=== PATIENT | female | born 1945 | race Caucasian/White ===

== ENCOUNTER 2018-11-02 05:12 | Inpatient (IN) ==
[2018-10-26 14:18] LABS: URINE SOURCE CLEAN CATCH
--- NOTE | 2018-10-26 14:20 | EKG Report ---
Test Performed on : 10/26/2018 1:34:05 PM Test Reason : PAT Blood Pressure : / mmHG Vent. Rate : 083 BPM Atrial Rate : 083 BPM P-R Int : 184 ms QRS Dur : 092 ms QT Int : 392 ms P-R-T Axes : 041 009 035 degrees QTc Int : 460 ms Normal sinus rhythm. Possible Left atrial enlargement Left ventricular hypertrophy Nonspecific ST abnormality Abnormal ECG When compared with ECG of 14-JUL-2018 16:13, aberrant conduction. is no longer present Confirmed by Elissa ARREDONDO, Everardo Valladares ([id number]) on 10/27/2018 10:14:47 PM
[2018-10-26 14:21] LABS: BASO# 0.04 X1000 (0.0-0.2); BASO% 0.8 % (0.0-0.8); EOS# 0.04 X1000 (0.0-0.7); EOS% 0.8 % (0.0-10.0); HEMATOCRIT 36.3 % (37.0-47.0); HEMOGLOBIN 11.8 g/dL (12.0-16.0); IMM GRAN# 0.05 X1000 (0.0-0.04); LYMPH# 1.66 X1000 (1.2-3.4); LYMPH% 32.4 % (20.5-51.1); MCH 29.7 PG (27-31); MCHC 32.5 g/dL (33-37); MCV 91.4 FL (81-99); MONO# 0.38 X1000 (0.11-0.59); MONO% 7.4 % (1.7-9.3); MPV 11.3 FL (7.4-10.4); NEUT# 2.96 X1000 (1.4-6.5); NEUT% 57.6 % (42.2-75.2); PLT 191 X1000 (130-400); RBC 3.97 XMIL (4.2-5.4); RDW 15.1 % (11.5-14.5); WBC 5.13 X1000 (4.8-10.8)
[2018-10-26 14:24] LABS: BILIRUBIN URINE NEGATIVE (NEGATIVE); BLOOD URINE NEGATIVE (NEGATIVE); COLOR YELLOW; GLUCOSE URINE NEGATIVE (NEGATIVE); KETONE URINE TRACE mg/dL (NEGATIVE); LEUKOCYTES URINE SMALL (NEGATIVE); NITRITE URINE NEGATIVE (NEGATIVE); PH URINE 5.5; PROTEIN URINE 200 mg/dL (NEGATIVE); SP GRAVITY URINE 1.032; TURBIDITY URINE CLEAR (CLEAR); UROBILINOGEN URINE 2 mg/dL (NORMAL)
[2018-10-26 14:27] LABS: UR EPITHELIAL CELLS <10 /HPF (<10); URINE BACTERIA NEGATIVE /HPF; URINE RBC <10 /HPF (<10); URINE WBC <10 /HPF (<10)
[2018-10-26 14:30] LABS: INR 1.01; PROTIME 13.4 Seconds (11.0-16.0); URINE CASTS NONE SEEN
[2018-10-26 14:54] LABS: POTASSIUM 3.8 mmol/L (3.5-5.1)
[2018-10-26 15:12] LABS: HEMOGLOBIN A1C 6.4 % (4.8-6.0)
[2018-11-02] MEDS ORDERED: COLACE ONE (05:53)
[2018-11-02] MEDS ORDERED: REGLAN ONE (05:53)
[2018-11-02] MEDS ORDERED: LYRICA ONE (05:53)
[2018-11-02] MEDS ORDERED: CELEBREX ONE (05:53)
[2018-11-02] MEDS ORDERED: PEPCID ONE (05:53)
[2018-11-02] MEDS ORDERED: LR 1,000 ML ONE (05:54)
[2018-11-02] MEDS ORDERED: KEFZOL 1 GM/D5W 2 GM/100 ML IVPB ONE (05:54)
[2018-11-02] MEDS ORDERED: FENTANYL ONE (06:46)
[2018-11-02] MEDS ORDERED: DIPRIVAN 1% ONE ×4 (06:47→08:49)
[2018-11-02] MEDS ORDERED: XYLOCAINE-MPF 2% ONE (06:49)
[2018-11-02] MEDS ORDERED: ROBINUL ONE (06:49)
[2018-11-02] MEDS ORDERED: QUELICIN (DOSE) ONE (06:49)
[2018-11-02] MEDS ORDERED: TORADOL ONE (07:04)
[2018-11-02] MEDS ORDERED: SODIUM CHLORIDE 0.9% ONE (07:04)
[2018-11-02] MEDS ORDERED: CYKLOKAPRON 1,000 MG/NS 1,000 MG/100 ML IVPB ONE ×2 (07:04→07:05)
[2018-11-02] MEDS ORDERED: VANCOMYCIN ONE (07:04)
[2018-11-02] MEDS ORDERED: DURAMORPH ONE (07:04)
[2018-11-02] MEDS ORDERED: MARCAINE 0.25% PF ONE (07:04)
[2018-11-02] MEDS ORDERED: EXPAREL 1.3% ONE (07:05)
[2018-11-02] MEDS ORDERED: DECADRON ONE (08:01)
[2018-11-02] MEDS ORDERED: ZOFRAN ONE (08:01)
[2018-11-02] MEDS ORDERED: OFIRMEV 1000 MG/ISOTONIC SOLN 1,000 MG/100 ML BOTTLE ONE (08:01)
[2018-11-02 08:14] LABS: URINE SOURCE CATH
[2018-11-02 08:20] LABS: BILIRUBIN URINE NEGATIVE (NEGATIVE); BLOOD URINE NEGATIVE (NEGATIVE); COLOR YELLOW; GLUCOSE URINE NEGATIVE (NEGATIVE); KETONE URINE NEGATIVE (NEGATIVE); LEUKOCYTES URINE NEGATIVE (NEGATIVE); NITRITE URINE NEGATIVE (NEGATIVE); PH URINE 6.5; PROTEIN URINE 200 mg/dL (NEGATIVE); SP GRAVITY URINE 1.016; TURBIDITY URINE CLEAR (CLEAR); UR EPITHELIAL CELLS <10 /HPF (<10); URINE BACTERIA NEGATIVE /HPF; URINE RBC <10 /HPF (<10); URINE WBC <10 /HPF (<10); UROBILINOGEN URINE NORMAL (NORMAL)
--- NOTE | 2018-11-02 09:14 | OPERATIVE NOTE ---
PROCEDURE DATE: 11/02/2018 PREOPERATIVE DIAGNOSIS: Degenerative joint disease, right knee. POSTOPERATIVE DIAGNOSIS: Degenerative joint disease, right knee. PROCEDURE PERFORMED: Right total knee replacement. SURGEON: Rashawn Davila MD. RELATIONSHIP CONSULTANT: PERICO Hall. Mr. Dow was necessary for proper retraction and manipulation of the knee during the case. ANESTHESIA: Spinal. COMPLICATION: None. PROCEDURE IN DETAIL: This 73-year-old female presents for right total knee replacement. Risks, benefits, and no guarantees were discussed and she is willing to proceed. She was taken the operating room and satisfactory anesthesia obtained. The right leg was prepped and draped in usual sterile fashion. A time-out was taken to confirm operative site, procedure, and patient. The leg was wrapped with an Esmarch and tourniquet inflated to 350 mmHg. A midline incision was made over the front of the knee followed by a medial quad tendon-sparing arthrotomy. The patella was everted and resurfaced with freehand technique and subluxed laterally. With the knee flexed, an intramedullary hole was made in the distal femur and the distal femoral cutting block secured in 5 degrees of valgus. 10 degree flexion contracture was noted so an additional 2 mm was taken off the distal femur. The distal femur cut was then made and the femur sized to a DePuy Attune size 6 femoral implant. The 4 in 1 block was secured and the anterior, posterior, and chamfer cuts sequentially made. The notch was created for posterior stabilized design using provided notch guide. Afterward, any remaining osteophytes or loose bodies were debrided about the femur or popliteal space. A PCL retractor was placed behind the tibia with the knee flexed to protect the neurovascular bundle and the tibial cutting block secured with extramedullary alignment. The tibial resection was made and the flexion extension gaps equal with a 5 mm spacer block. The tibia was sized to a size 6 tibial tray. A trial reduction was performed with trial components with good range of motion and stability with a 5 mm spacer block. The patella was sized to a 35 medialized dome patella with midline tracking. The lug holes were placed for the patellar and femoral implants and the trial components removed. The bony surfaces were thoroughly irrigated with pulsatile lavage. Cement with 1 g of vancomycin was utilized to cement a DePuy Attune size 6 tibial base plate, a size 6 standard width right posterior stabilized femoral component and a 35 medialized dome patella. The excess cement was removed with a [place] elevator prior to curing. While the cement cured, the joint capsule was injected with Exparel for pain management and a Hemovac drain placed. After curing of the cement, the size 6 5 mm thick posterior stabilized polyethylene bearing was inserted in the tibial tray and the knee reduced. Final range of motion was 0 to 110 degrees motion with midline patellar tracking. The arthrotomy was copiously irrigated with irrigant. It was closed with #1 Vicryl over the arthrotomy and drain and 2-0 Vicryl in the subcutaneous and skin kervin on the skin edges. Sterile dressings completed the closure and the patient was recovered from anesthesia and transferred to the recovery room in stable condition. No intraoperative complications were noted. Instrument count and sponge count was correct at the time of closure. cc: Fermin Davila MD
[2018-11-02] MEDS ORDERED: NS 1,000 ML ONE (09:52)
--- NOTE | 2018-11-02 10:00 | Diag Imaging Result Doc PS360 ---
EXAM: KNEE 1-2 VIEWS-RIGHT 11/02/2018 HISTORY: Post op right total knee TECHNIQUE: Right knee two views COMMENT: There is a total knee arthroplasty. There is no evidence of acute bony abnormality otherwise. IMPRESSION: Postsurgical changes. Electronically signed by Davian Franco 11/02/2018 9:58 AM
--- NOTE | 2018-11-02 10:02 | EKG Report ---
Test Performed on : 11/02/2018 09:34:46 AM Test Reason : afib in surgery Blood Pressure : / mmHG Vent. Rate : 099 BPM Atrial Rate : 227 BPM P-R Int : 000 ms QRS Dur : 092 ms QT Int : 388 ms P-R-T Axes : 000 023 018 degrees QTc Int : 497 ms Atrial flutter. with variable AV block. Nonspecific ST and T wave abnormality Prolonged QT Abnormal ECG When compared with ECG of 26-OCT-2018 13:34, Atrial flutter. has replaced Sinus rhythm. Confirmed by Elissa ARREDONDO, Everardo Valladares ([id number]) on 11/02/2018 1:14:08 PM
[2018-11-02] MEDS ORDERED: ZOFRAN IV PRN (11:00)
[2018-11-02] MEDS ORDERED: OXY IR PO PRN (11:00)
[2018-11-02] MEDS: NS 1,000 ML IV SCH ×2 (11:00→21:44)
[2018-11-02] MEDS ORDERED: ZOFRAN ODT PO PRN (11:00)
[2018-11-02] MEDS: TYLENOL PO SCH ×3 (11:00→23:54)
[2018-11-02] MEDS ORDERED: MORPHINE IV PRN ×3 (11:00)
[2018-11-02] MEDS ORDERED: TYLENOL PO PRN (11:41)
[2018-11-02] MEDS ORDERED: MOTRIN PO PRN (11:41)
[2018-11-02] MEDS ORDERED: ZYRTEC PO PRN (11:41)
[2018-11-02] MEDS ORDERED: ROBAXIN PO PRN (11:41)
--- NOTE | 2018-11-02 12:23 | CONSULTATION ---
DATE OF CONSULTATION: 11/02/2018 PAST MEDICAL HISTORY: 1. Osteoarthritis. 2. Hypertension. 3. Diabetes mellitus type 2. 4. Gastroesophageal reflux. 5. Dyslipidemia. 6. Peripheral neuropathy. 7. History of a goiter. She had half of her thyroid or lobectomy done. PAST SURGICAL HISTORY: 1. Thyroid lobectomy. 2. Status post hysterectomy. Her ovaries were retained. 3. Open reduction internal fixation of right arm. 4. Left knee arthroscopy. 5. Breast biopsy. 6. Apparently, she broke her right foot the same time she broke her right arm. MEDICATIONS: Reviewed her home medications. ALLERGIES: No known drug allergies. SOCIAL HISTORY: Lives alone. Negative for alcohol or tobacco. No illicit drugs. FAMILY HISTORY: Unremarkable for cardiac, renal or respiratory disease. REVIEW OF SYSTEMS: General: She has been complaining of right knee pain. Otherwise, really no complaints. HEENT: No change in visual or hearing acuity. Respiratory: No increased work of breathing or dyspnea. Cardiovascular: No chest pain or tachy palpitations. GI: Unremarkable. : Unremarkable. Musculoskeletal and Neurologic: No significant complaints. Endocrinologic/Hematologic: No significant history. DATA: Urine output was 2200 mL. Knee x-ray postsurgical, there is total knee arthroplasty. No evidence of acute bony abnormality. ASSESSMENT AND PLAN: She was admitted for elective surgery on the right knee for degenerative joint disease. She has had surgery on the left knee total arthroplasty in the past. She underwent surgery this morning. LABORATORY: Her labs on , white count 5130, hematocrit 36 hemoglobin 11, and platelet count 191,000. Chemistry: Sodium 139, potassium 3.8, chloride 100, bicarb 27, BUN 32, creatinine 1.0, blood sugar 157 that was on the was on . Hemoglobin A1c on the was 6.4. Calcium is 10. ASSESSMENT AND PLAN: 1. Elective right knee total arthroplasty doing very well. I think her plan is to go to rehab. Continue physical therapy. 2. Diabetes mellitus type 2. Sugars appear likely to have been well controlled. We will check pattern sugars and sliding scale. 3. History of lobectomy for thyroid. We will check her T4 and TSH. 4. History of gastroesophageal reflux aware. 5. Hypertension. Aware. 6. History of hyperlipidemia. REVIEW OF ORDERS: She is on oxycodone IR 5 mg q.3 hours p.r.n. pain, and she has a 10 mg p.r.n. as well. She is on normal saline 75 mL an hour. Norvasc 5 mg daily. Aspirin 325 mg a day. She is getting cefazolin 2 g IV q.8 hours. Celebrex 200 mg p.o. b.i.d., Zyrtec 10 mg a day p.r.n., Colace 100 mg b.i.d., Cymbalta 60 mg a day, Pepcid 20 mg a day, and getting Tylenol 500 mg q.6 hours p.r.n. We have given her some Advil p.r.n. and she is getting fenofibric acid 135 mg p.o. daily. Added back her acidophil 1 tablet daily and lansoprazole 15 mg a day, Victoza 1.8 mg subcutaneous daily. Robaxin 750 mg p.o. t.i.d. p.r.n., metoprolol 100 mg p.o. daily, Actos 45 mg a day, Mirapex 1 mg daily, Lyrica 150 mg b.i.d., Crestor 10 mg a day, valsartan/hydrochlorothiazide 1 tablet daily, and vitamin B complex 1 a day. cc: MD Fermin Chavez MD
[2018-11-02] MEDS: OXY IR PO PRN ×2 (12:58→21:45)
[2018-11-02] MEDS: ULTRAM PO SCH ×3 (13:00→23:54)
--- NOTE | 2018-11-02 14:58 | ORTHOPAEDICS PROGRESS NOTE ---
DATE: 11/02/2018 SUBJECTIVE DATA: Ms. Whitfield is seen on postop day zero for her right total knee arthroplasty. She reports doing well at this time. States her pain is 3/10. Physical therapy is in the room with the patient about to get her up and walk her. The patient denies nausea or vomiting at this time. OBJECTIVE DATA: Good sensation, right lower extremity. There are good pedal pulses. The bandages are clean and dry. The patient is able to flex the knee and use her quadriceps muscles without difficulty. ASSESSMENT: Degenerative joint disease, right knee with right total knee arthroplasty. PLAN: We plan to go ahead and place Ms. Whitfield in some VANESSA hose at this time. She had an episode of APF in the operating room, so we will change her to Xarelto 10 mg daily. She already sees a heart doctor in [place], and states this is the first time this has happened, but her mother does have a history of atrial fibrillation. She states she will keep her appointment with him and go see him soon. Hospitalists have been consulted to come see the patient, evaluate her diabetes and other medical problems. We appreciate their help. We will check back on the patient tomorrow and see how she is doing. The plan is to get her out to rehab toward the end of the week. Dictated by PERICO Hall for Fermin Davila MD cc: PERICO Hall MD
--- NOTE | 2018-11-02 15:47 | Diag Imaging Result Doc PS360 ---
EXAM: CHEST-1 VIEW 11/02/2018 HISTORY: REHAB TECHNIQUE: AP portable at 1528 COMMENT: There is cardiomegaly and increased pulmonary vascularity. Compared to 10/05/2018 there has been no significant change. IMPRESSION: Stable chest. Electronically signed by Davian Franco 11/02/2018 3:45 PM
[2018-11-02] MEDS: HUMALOG SUBQ SCH ×2 (16:00→22:28)
[2018-11-02] MEDS: KEFZOL 2 GM/D5W 2 GM/50 ML IVPB IV SCH ×2 (16:20→23:55)
[2018-11-02] MEDS: COLACE PO SCH (21:43)
[2018-11-02] MEDS: CELEBREX PO SCH (21:43)
[2018-11-02] MEDS: LYRICA PO SCH (21:43)
[2018-11-02] MEDS: PERIDEX MT SCH (21:44)
[2018-11-02] MEDS ORDERED: TRILIPIX PO SCH (22:00)
[2018-11-02] MEDS ORDERED: MIRAPEX PO SCH (22:00)
[2018-11-02] MEDS ORDERED: CYMBALTA PO SCH (22:00)
[2018-11-02] MEDS ORDERED: VICTOZA SUBQ SCH (22:00)
[2018-11-02] MEDS ORDERED: INSULIN PEN NEEDLES ONE (22:26)
[2018-11-02] MEDS ORDERED: CRESTOR PO SCH (22:45)
[2018-11-03] MEDS: NS 1,000 ML IV SCH (01:53)
[2018-11-03] MEDS: OXY IR PO PRN ×3 (04:13→13:53)
[2018-11-03] MEDS ORDERED: XARELTO PO SCH (06:00)
[2018-11-03] MEDS: ULTRAM PO SCH ×2 (06:01→11:10)
[2018-11-03] MEDS: TYLENOL PO SCH ×2 (06:02→11:10)
[2018-11-03 06:48] LABS: HEMATOCRIT 28.5 % (37.0-47.0); HEMOGLOBIN 9.2 g/dL (12.0-16.0)
[2018-11-03] MEDS: HUMALOG SUBQ SCH ×2 (07:00→11:11)
[2018-11-03 07:29] LABS: AGAP 13; BUN 22 mg/dL (8-22); CHLORIDE 103 mmol/L (98-107); COSMO 284; CREATININE 0.6 mg/dL (0.5-0.9); ESTIMATED GFR > 60; GLUCOSE 127 mg/dL (70-104); POTASSIUM 3.8 mmol/L (3.5-5.1); SODIUM 140 mmol/L (136-145); TCO2 24 mmol/L (25-35)
[2018-11-03 08:06] LABS: FREE T4 1.03 ng/dL (0.93-1.70); TSH 0.63 uIUmL (0.27-4.20)
[2018-11-03] MEDS ORDERED: VICON-C PO SCH (09:00)
[2018-11-03] MEDS ORDERED: TRILIPIX PO SCH (09:00)
[2018-11-03] MEDS ORDERED: CULTURELLE PO SCH (09:00)
[2018-11-03] MEDS ORDERED: DIOVAN PO SCH (09:00)
[2018-11-03] MEDS ORDERED: CRESTOR PO SCH (09:00)
[2018-11-03] MEDS ORDERED: HYDROCHLOROTHIAZIDE PO SCH (09:00)
[2018-11-03] MEDS ORDERED: ACTOS PO SCH (09:00)
[2018-11-03] MEDS ORDERED: ASPIRIN PO SCH (09:00)
[2018-11-03] MEDS ORDERED: PEPCID PO SCH (09:00)
[2018-11-03] MEDS ORDERED: NORVASC PO SCH ×2 (09:00→21:00)
[2018-11-03] MEDS ORDERED: PREVACID SOLUTAB PO SCH (09:00)
[2018-11-03] MEDS ORDERED: CYMBALTA PO SCH (09:00)
[2018-11-03] MEDS ORDERED: TOPROL XL PO SCH (09:00)
[2018-11-03] MEDS ORDERED: VITAMIN D PO SCH (09:00)
[2018-11-03] MEDS ORDERED: MIRAPEX PO SCH (09:00)
[2018-11-03] MEDS ORDERED: VICTOZA SUBQ SCH (09:00)
[2018-11-03] MEDS: PERIDEX MT SCH (09:17)
[2018-11-03] MEDS: LYRICA PO SCH (09:17)
[2018-11-03] MEDS: COLACE PO SCH (09:20)
[2018-11-03] MEDS: CELEBREX PO SCH (09:20)
--- NOTE | 2018-11-03 12:15 | PROGRESS NOTE ---
DATE: 11/03/2018 SUBJECTIVE: Ms. Whitfield is feeling good, had a good night's sleep. Legs were not giving her pain until she had to do her therapy. OBJECTIVE: Vital Signs: Temperature 98.7 degrees, pulse 70, respirations 16. Blood pressure 197/80 and last 2 numbers before that were 169/72 and 179/68. HEENT: Pupils are equal and round. Lungs: Clear in all lung alcaraz. Cardiovascular: Exam is regular rhythm and rate without murmur or S3. Abdomen: Soft. Skin: Warm and dry. Output: Urine output is 4700 mL. DIAGNOSTIC DATA: Chest x-ray from yesterday is stable. There is cardiomegaly, increased pulmonary vascularity, but otherwise no change. ASSESSMENT AND PLAN: 1. Elective right knee arthroplasty, doing well. Plan is to go to rehab when available. She would like to go to [facility]. 2. Diabetes mellitus type 2. Sugars look under good control. 3. History of lobectomy for thyroid. I have checked T4 and TSH, appears to be euthyroid. 4. History of gastroesophageal reflux. 5. History of hypertension. We may adjust the blood pressure medicine. Blood pressure is running a little bit. Her T4 is 1.03 and TSH is 0.63. Blood sugars 244, 127, 201. She I think would benefit from an angiotensin-converting enzyme inhibitor, and so I will put her on lisinopril 10 mg daily. cc: MD Fermin Chavez MD
[2018-11-03 13:56] VITALS: BP 130/61
--- NOTE | 2018-11-03 14:51 | DISCHARGE SUMMARY ---
ADMISSION DATE: 11/02/2018 DISCHARGE DATE: 11/03/2018 ADMITTING DIAGNOSES: 1. Degenerative joint disease, right knee. 2. Diabetes mellitus. DISCHARGE DIAGNOSES: 1. Degenerative joint disease, right knee. 2. Diabetes mellitus type 2. PROCEDURE: On 11/02/2018, Dr. Davila performed a right total knee replacement. HOSPITAL COURSE: Ms Whitfield is a 73-year-old female who presented for right total knee replacement. Risks, benefits, and no guarantees were discussed and she wished to proceed. She was taken to the operating room and satisfactory anesthesia was obtained. She tolerated the procedure well and was discharged to the recovery room. After satisfactory recovery, she was transferred to [address] [place] [address]. She has had an uneventful postoperative course. Her current vital signs are blood pressure 130/61, temperature 98.7 degrees, respirations 16, heart rate 71, 93% on room air. Postoperative laboratory hemoglobin and hematocrit 9.2 and 28.5. BUN and creatinine 22 and 0.6. She has worked with therapy. She has mobilized, but definitely needs assistance. We do feel a rehab stay would benefit her. Her drain and Perdomo have both been pulled. She has voided. Her pain is under control. DISCHARGE MEDICATIONS: Norvasc 5 mg p.o. b.i.d., Celebrex 200 mg p.o. b.i.d., Zyrtec 10 mg p.o. daily, vitamin D 2000 units p.o. daily, Colace 100 mg p.o. b.i.d., Cymbalta 60 mg p.o. at bedtime, Pepcid 20 mg p.o. daily, Addison 10 mg every 4 hours as needed for pain, Xarelto 10 mg p.o. daily x12 days. Robaxin 750 mg p.o. t.i.d., Toprol-XL 100 mg p.o. daily, Actos 45 mg p.o. daily, Lyrica 150 mg p.o. b.i.d., Crestor 10 mg p.o. at bedtime, Diovan 80 mg p.o. daily. DISCHARGE DISPOSITION: Ms. Whitfield is going to be discharged to a rehab facility. She is going to continue to work on mobilization. We do want to make sure they are working with her and getting her a little more mobile. We will plan on her doing a rehab stay and then in 10 to 14 days she will follow up with Dr. Davila. They will get her kervin out. She should be doing well at that point. She is full weightbearing. We discussed signs and symptoms of postoperative infection. She is going to [place]ison for pain relief. She will do Xarelto for DVT prophylaxis. If there are any questions or concerns, they can call the office. We do want her working on extension. She is going to keep her elevation pillow behind the ankle and let that knee hand to gravity several times a day. Dictated by PERICO Rea for Fermin Davila MD cc: PERICO Rea MD
== END 2018-11-03 16:40 | DRG 470 ==
LOC: SURHOLD 05:12 → 4N 08:43
PROVIDERS: ADMIT Orthopaedic Surgery Adult Reconstructive Orthopaedic Surgery; ATTEND Orthopaedic Surgery Adult Reconstructive Orthopaedic Surgery

== ENCOUNTER 2018-11-28 12:05 | Inpatient (IN) ==
[2018-11-28] MEDS ORDERED: DEMEROL IM ONE ×2 (13:12→15:03)
[2018-11-28] MEDS ORDERED: PHENERGAN IM ONE (13:12)
--- NOTE | 2018-11-28 13:38 | Diag Imaging Result Doc PS360 ---
EXAM: KNEE 3 VIEWS RIGHT - 11/28/2018 HISTORY: contusion knee TECHNIQUE: Right knee three views COMPARISON: 11/02/2018 FINDINGS: There is a right total hip prosthesis, which appears to be in satisfactory alignment. There is a new fracture through the inferior patella. There is distraction of patellar fragments by approximately 3.3 cm. There is no other fracture identified. IMPRESSION: Fracture through inferior patella, with destruction sinus. Electronically signed by Dashawn Doe 11/28/2018 1:36 PM
[2018-11-28] MEDS ORDERED: APRESOLINE PO ONE (15:59)
--- NOTE | 2018-11-28 16:52 | PROVIDER DOCUMENTATION ---
This chart was entered by Irena Blancas Scribe, acting as scribe for Fausto Posadas DO. HPI-Musculoskeletal Pain/Inj - GENERAL Chief Complaint: Extremity Injury Stated Complaint: knee pain Time Seen by Provider: 11/28/18 13:08 Source: patient - HX OF PRESENT ILLNESS-MUSKULOSKELTAL Nature of Presenting Problem: 73 yowf c/o fall down steps at [facility] injuring rt knee. pt sts she stepped down from step and used rt leg and felt "snap" and landed on concrete. pt had rt knee replacement sx w/Dr. Davila on Nov 02. pt arrived via ems. pt denies head injury and loc. Severity in ED: mild Onset/Duration: 1-3 hours ago Timing: still present Any recent injury?: No Locality of Occurance: Other ([facility]) Recently seen or treated by another doctor?: Yes (RK replacement Nov 02) - FALL INJURY Location of Pain/Injury: reports: lower extremity (rt knee) Pain Radiation: reports: no radiation Reason for Fall: reports: lost balance Symptoms prior to fall:: reports: none Loss of Consciousness: no loss of consciousness Injury Associated Symptoms: reports: denies symptoms Review of Systems - Adult - REVIEW OF SYSTEMS - ADULT Constitutional: reports: no symptoms reported. denies: fever, fatique, night sweats Eyes: reports: no symptoms reported Ears, Nose, Mouth & Throat: reports: no symptoms reported Cardiovascular: reports: no symptoms reported Respiratory: reports: no symptoms reported Gastrointestinal: reports: no symptoms reported Genitourinary: reports: no symptoms reported Musculoskeletal: reports: see HPI, joint pain (rt knee), joint swelling (rt knee). denies: bone pain, back pain, muscle weakness, neck pain Integumentary: reports: no symptoms reported Neurological: reports: see HPI, loss of balance. denies: numbness, seizure, syncope, tremors Psychiatric: reports: no symptoms reported Endocrine: reports: no symptoms reported Hematologic/Lymphatic: reports: no symptoms reported Allergic/Immunologic: reports: no symptoms reported All Other Systems: Reviewed and Negative Past History - Adult - PAST MEDICAL HISTORY-ADULT Review of Records: reports: Nursing Assessment Review, Medications Reviewed, Social history reviewed & non-contributory. Major Childhood Illnesses: reports: denies history Cardiovascular: reports: HTN Respiratory: reports: denies history Gastrointestinal: reports: GERD Obstetrical/Gynecological: reports: denies history Genitourinary: reports: denies history Musculoskeletal: reports: denies history Neurological: reports: denies history Psychiatric: reports: depression Endocrine/Immune: reports: Diabetes Other Conditions: reports: denies history - PRIOR SURGERIES/PROCEDURES Surgical/Procedure History: reports: hysterectomy, orthopedic (extremity), joint replacement (rt knee 9-24, rt hip), other - IMMUNIZATION STATUS Childhood Immunizations: See Nurse Assessment Flu Vaccine: See Nurse Assessment - FAMILY HISTORY Family History: reviewed, not pertinent - SOCIAL HISTORY Smoking: non-smoker Substance Use: none/never Physical Exam-Injury Related - Physical Exam-Injury Related Initial Vital Signs Reviewed: Yes General Appearance: alert, mild distress, obese. negative: cachetic, lethargic, slow to respond Immobilization?: negative: backboard, C-collar Eyes: PERRL/EOMI, pink conjunctivae Head, Ears, Nose, Mouth & Throat: normocephalic/atraumatic, moist mucous membranes, normal ENT inspection Neck: non-tender, full range of motion, supple, normal inspection Respiratory: chest non-tender, lungs clear, normal breath sounds Cardiovascular: normal peripheral pulses, regular rate, rhythm Peripheral Pulses: radial (R): 2+, radial (L): 2+ Abdominal Exam: normal bowel sounds, non tender, soft Female Genitalia/Pelvic Exam: deferred Lymphatic: no adenopathy Back Exam: normal inspection, no CVA tenderness, no vertebral tenderness Extremity: normal range of motion, no pedal edema, no calf tenderness, normal capillary refill, pelvis stable, swelling (medial aspect rt knee), tenderness (rt knee), other (bruising medial aspect rt knee). negative: non-tender, normal inspection, deformity, erythema, inflammation, pulse deficit, slow capillary refill Integumentary: normal color, warm/dry, other (incision above rt knee bleeding, dressing in place.). negative: abrasion, contusion(s), laceration, puncture wound(s) Neurologic: grossly normal, no motor/sensory deficits Psych/Mental Status: normal mood/affect, normal thought content, normal thought process, oriented x 3 - Glascow Coma Score Best Eye Response (Jeff): (4) open spontaneously Best Verbal Response ([place]): (5) oriented Best Motor Response (Jeff): (6) obeys commands [place] Total: 15 Progress - PLAN OF CARE/RESULTS Progress/Plan/Lab Results: Vital Signs - 8 hr 11/28/18 12:10 11/28/18 13:01 11/28/18 14:48 Temperature 97.9 F Pulse Rate 67 74 Respiratory Rate 18 18 Blood Pressure 172/77 185/100 183/91 O2 Sat by Pulse Oximetry 98 98 99 11/28/18 15:10 Temperature Pulse Rate 71 Respiratory Rate 18 Blood Pressure 205/102 O2 Sat by Pulse Oximetry 100 Orders Category Date Time Status Consent for Surgery DIRECTED Care 11/28/18 16:28 Active Ice Pack to affected area DIRECTED Care 11/28/18 16:28 Active Nursing- MD Consult Request ROUTINE Care 11/28/18 16:49 Active Physician/Provider Consults Routine Cons 11/28/18 16:49 Ordered KNEE 3 VIEWS RIGHT [RAD] Stat Exams 11/28/18 13:11 Completed CBC WITH DIFF [HEME] Routine Lab 11/29/18 06:00 Ordered CBC WITH DIFF [HEME] Stat Lab 11/28/18 16:48 Ordered COMPREHENSIVE METABOLIC PANEL [CHEM] Routine Lab 11/29/18 06:00 Ordered COMPREHENSIVE METABOLIC PANEL [CHEM] Stat Lab 11/28/18 16:48 Ordered Hydralazine [Apresoline] Med 11/28/18 15:59 Discontinued 25 mg PO NOW ONE Meperidine [Demerol] Med 11/28/18 13:12 Discontinued 25 mg IM NOW ONE Meperidine [Demerol] Med 11/28/18 15:03 Discontinued 25 mg IM NOW ONE Promethazine [Phenergan] Med 11/28/18 13:12 Discontinued 25 mg IM NOW ONE - XRAY 1 XRAY: Right XRAY Study: Knee Impression: Abnormal, See EMR Report (EXAM: KNEE 3 VIEWS RIGHT - 11/28/2018 HISTORY: contusion knee TECHNIQUE: Right knee three views COMPARISON: 11/02/2018 FINDINGS: There is a right total hip prosthesis, which appears to be in satisfactory alignment. There is a new fracture through the inferior patella. There is distraction of patellar fragments by approximately 3.3 cm. There is no other fracture identified. IMPRESSION: Fracture through inferior patella, with destruction sinus. Electronically signed by Dashawn Doe 11/28/2018 1:36 PM) - CONSULTS/PCP/HOSPITALIST Notification #1 *Consult/PCP/Hospitalist*: Dr. Mclaughlin Time Discussed: 14:36 Consult Disposition: other (will call Dr. Posadas back) #2 Consult: Dr. Mclaughlin Time Discussed: 15:11 Consult Disposition: Will see in ED #3 Consult: Dr. Bearden Time Discussed: 16:47 Consult Disposition: Admit Departure - Departure Date of Disposition Decision: 11/28/18 Time of Disposition Decision: 16:51 DIAGNOSIS: Patellar fracture Disposition: ADMITTED INPATIENT 09 Certified Medical Emergency: Emergent Condition: Stable Referrals and Follow-Ups: Yosvany Estevez MD [Primary Care Provider] - - Critical Care Note This patient required my direct & personal management of CC.: No Attestation - Physician/ SHARDA Attestation Patient care was provided by Advanced Practice Provider:: No The physician spent face to face time with patient:: Yes Advanced Practice Provider documentation review:: Supervising physician onsite and consulted in the evaluation and care of this patient. The physician did have a face to face encounter with the patient. This chart was documented by the indicated scribe, (Irena Blancas Scribe) and accurately reflects the services I performed and decisions made by me, Fausto Posadas DO, as attested by the provider's signature.
[2018-11-28] MEDS ORDERED: TYLENOL PO PRN (17:04)
[2018-11-28] MEDS ORDERED: ZYRTEC PO PRN (17:06)
[2018-11-28] MEDS ORDERED: MORPHINE IV PRN (17:09)
[2018-11-28] MEDS ORDERED: ZOFRAN IV PRN (17:11)
[2018-11-28 17:20] LABS: BASO# 0.02 X1000 (0.0-0.2); BASO% 0.3 % (0.0-0.8); EOS# 0.02 X1000 (0.0-0.7); EOS% 0.3 % (0.0-10.0); HEMATOCRIT 31.3 % (37.0-47.0); HEMOGLOBIN 9.5 g/dL (12.0-16.0); IMM GRAN# 0.04 X1000 (0.0-0.04); IMM GRAN% 0.5 % (0.0-0.5); LYMPH# 0.99 X1000 (1.2-3.4); LYMPH% 13.6 % (20.5-51.1); MCH 27.5 PG (27-31); MCHC 30.4 g/dL (33-37); MCV 90.7 FL (81-99); MONO# 0.34 X1000 (0.11-0.59); MONO% 4.7 % (1.7-9.3); MPV 11.1 FL (7.4-10.4); NEUT# 5.89 X1000 (1.4-6.5); NEUT% 80.6 % (42.2-75.2); PLT 205 X1000 (130-400); RBC 3.45 XMIL (4.2-5.4)
[2018-11-28 17:42] LABS: ALB/GLOB RATIO 1.2; ALBUMIN 3.9 g/dL (3.5-5.0); CALCIUM 10.2 mg/dL (8.8-10.2); TOTAL BILIRUBIN 0.19 mg/dL (0.20-1.00); TOTAL PROTEIN 7.1 g/dL (6.3-8.3)
--- NOTE | 2018-11-28 17:45 | HISTORY AND PHYSICAL ---
CHIEF COMPLAINT: Right knee pain. HISTORY OF PRESENT ILLNESS: 73-year-old female with a past medical history of osteoarthritis, hypertension, diabetes mellitus type 2, GERD, dyslipidemia, peripheral neuropathy, history of goiter, is status post partial lobectomy, recently she had a surgery done where a right total knee arthroplasty was done, today she presented to the emergency department due to right knee pain. Apparently this patient was stepping down from a step a at [employer] when she felt a snap and immediately she felt pain and she landed on the concrete, like I mentioned before this patient had a total knee replacement on 11/02/2018, I can notice some bleeding through the surgical wound, x-ray at the emergency department showed a patellar fracture, she will be admitted and evaluated by Orthopedic Surgery department, hopefully she will have a surgery done to repair this in the next 48 hours. In the meantime I will continue with her home medications, pain medication as well. At the moment of my exam this patient was completely alert and oriented x3. She is complaining of right knee pain that is wrapped with a dressing. Pending lab work at this moment. She denies nausea, vomiting, diarrhea, constipation, shortness of breath, dizziness, dysuria, melena. PAST MEDICAL HISTORY: Osteoarthritis, hypertension, diabetes, GERD, dyslipidemia, peripheral neuropathy, history of goiter. PAST SURGICAL HISTORY: Thyroid lobectomy, status post hysterectomy, open reduction and internal fixation of the right arm, left knee arthroplasty, right knee replacement on 11/02/2018, breast biopsy. MEDICATIONS: Reviewed. ALLERGIES: No known allergies. SOCIAL HISTORY: She lives by herself. Negative alcohol, drugs, or tobacco use. FAMILY HISTORY: Noncontributory. REVIEW OF SYSTEMS: All the 14 points of review of systems were reviewed. All of them negative except as per HPI. PHYSICAL EXAMINATION: Temperature 97.9 degrees, pulse 71, respiratory rate 18, blood pressure 205/102, oxygen saturation 100% on room air. HEENT: Head normocephalic. No trauma. PERRLA. NECK: Supple. No JVD. No masses. Central trachea. CHEST: Clear to auscultation. No wheezing. No rales. ABDOMEN: Soft, nontender, nondistended. No hepatosplenomegaly. EXTREMITIES: Right knee pain and is wrapped with a new dressing, she does have some blood in that area, she is able to wiggle her toes. No neurovascular lesion. NEUROLOGIC: Patient is alert, she is oriented x3. No focal deficits. LABORATORY: Pending lab work at this moment. ASSESSMENT AND PLAN: 1. Right patellar fracture, Orthopedic Surgery will evaluate this patient. She is status post right knee arthroplasty as well recently, I will put this patient on pain medications and hopefully she will have a procedure done in the next 48 hours. 2. Recent right knee arthroplasty as above. 3. Type 2 diabetes. Continue with home medications and sliding scale insulin. 4. Hypertension. Continue home medication. I will add hydralazine to her medications as needed due to hypertension. 5. Gastroesophageal reflux disease. Continue proton pump inhibitors. 6. Dyslipidemia. Continue home medication. 7. Peripheral neuropathy, stable. 8. Vitamin D deficiency. Continue to replace. Further recommendations pending hospital course. cc: Raymond Juárez MD
--- NOTE | 2018-11-28 18:58 | ORTHOPAEDICS CONSULTATION ---
DATE: 11/28/2018 REASON FOR CONSULTATION: Periprosthetic patella fracture. PAST MEDICAL HISTORY: 1. Hypertension. 2. Diabetes. 3. Hyperlipidemia. PAST SURGICAL HISTORY: 1. Right total knee arthroplasty with Dr. Davila 4 weeks ago. 2. ORIF right elbow fracture. 3. Left total knee arthroplasty. 4. Hysterectomy. 5. Partial thyroidectomy. MEDICATIONS: 1. Lyrica. 2. Actos. 3. Choline. 4. Cymbalta. 5. Crestor. 6. Victoza. 7. Mirapex. 8. Amlodipine. 9. Metoprolol. 10. Zyrtec. 11. Vitamin B. 12. Vitamin D. 13. Valsartan/hydrochlorothiazide. 14. Pravastatin. ALLERGIES: No known drug allergies. SOCIAL HISTORY: Patient lives in [place]. She lives at home alone. She was in rehab for 2 weeks after surgery, however, is back leaving home now. FAMILY HISTORY: Noncontributory. REVIEW OF SYSTEMS: Negative other than what is listed in history of present illness. CHIEF COMPLAINT: Right knee pain. HISTORY OF PRESENT ILLNESS: Ms. Whitfield is a 73-year-old lady who recently underwent right total knee arthroplasty with Dr. Davila about 4 weeks ago. She states she was walking out of [employer] today when she was going down the stairs and felt a pop in her right knee and states her knee gave way on her, causing her to fall down onto the knee. She denies fully falling down or hitting her head or any loss of consciousness. She states she was unable to get up once it happened. Since that time, she has been unable to actively extend the knee. Ambulance came and picked her up and brought her to the ER for evaluation. X-rays demonstrated a periprosthetic patella fracture and orthopedic surgery was consulted. The patient states he has been doing well with the knee up until this point. She has no other complaints. PHYSICAL EXAMINATION: General: Ms. Whitfield is a 73-year-old female who appears well nourished, well developed, in no acute distress. She is awake, alert, oriented x3. She is very polite and cooperative during examination. Vital Signs: Pulse 71, respiratory rate 18, blood pressure 205/102, O2 sats 100% on room air. LABS: Pending.HEENT: Normocephalic and atraumatic. Respiratory: Nonlabored breathing. Cardiovascular: Regular rate and rhythm. Extremities: Examination of right lower extremity shows surgical incision to be healed with no signs of dehiscence. She does have a very small pinpoint area of bleeding on the superior aspect of the wound. This does not probe deep. Again, the wound is intact throughout the length. She has a large superficial hematoma and ecchymosis around the anterior aspect of the knee. She is unable to do a straight leg raise. Her calf and thigh are soft and compressible. Motor is intact EHL, tibialis anterior, gastrocsoleus complex. Sensation intact to light touch L3-S1. Dorsalis pedis pulse palpable and equal bilaterally. IMAGING: AP and lateral views of the right knee were obtained demonstrating a transverse displaced inferior pole patella fracture. She appears to have fractured through one of her distal drill hole sites on the patella. Femoral and tibial components appear to be in good position and well fixed. She also appears to have a fracture and some mild depression on the medial aspect of her tibia with some metaphyseal depression of the tibial base plate into the metaphysis. On the lateral aspect of the tibial metaphysis with some depression of the tibial base plate laterally. Femoral component appears well fixed. ASSESSMENT: A 73-year-old female status post right total knee arthroplasty with right periprosthetic displaced patella fracture as well as a right periprosthetic lateral metaphyseal tibial fracture. PLAN: 1. A long discussion was had with the patient regarding diagnosis and treatment options. She is going to need a revision surgery for this to address both her patella as well as the tibial plateau. She may end up needing explant of her current tibial base plate with placement of a stemmed component to provide support for that lateral fracture. In regards to the patella, she will need fixation of the patella with likely wire or FiberWire to reconstruct the extensor mechanism. I spoke with Dr. Davila, her surgeon, who will plan on doing this coming Thursday. The patient states she is lives alone and has no way to get back up to the hospital and so we will thus have her middle admitted to the hospitalist service. We will obtain preoperative blood work and get clearance for surgery. She can be on Lovenox for deep vein thrombosis prophylaxis. We will plan on making her NPO on Thursday night for plans with surgery on Thursday. 2. Patient will be nonweightbearing right lower extremity. She was placed into a well-padded knee immobilizer. 3. Appreciate hospitalist recommendations. 4. Ice right lower extremity as needed for pain.
[2018-11-28] MEDS: KEFZOL 1 GM/D5W 1 GM/50 ML IVPB IV SCH (19:00)
[2018-11-28] MEDS ORDERED: LYRICA PO SCH (21:00)
[2018-11-28] MEDS: MIRAPEX PO SCH (22:19)
[2018-11-28] MEDS: OXY IR PO PRN (22:19)
[2018-11-28] MEDS: CRESTOR PO SCH (22:23)
[2018-11-28] MEDS: LYRICA PO SCH (22:24)
[2018-11-29] MEDS: KEFZOL 1 GM/D5W 1 GM/50 ML IVPB IV SCH ×3 (00:34→17:47)
[2018-11-29] MEDS: PREVACID SOLUTAB PO SCH (06:13)
[2018-11-29 06:14] LABS: URINE SOURCE CATH
[2018-11-29] MEDS: OXY IR PO PRN ×5 (06:14→21:18)
[2018-11-29 06:22] LABS: BILIRUBIN URINE NEGATIVE (NEGATIVE); BLOOD URINE SMALL (NEGATIVE); COLOR YELLOW; GLUCOSE URINE NEGATIVE (NEGATIVE); KETONE URINE NEGATIVE (NEGATIVE); LEUKOCYTES URINE LARGE (NEGATIVE); NITRITE URINE POSITIVE (NEGATIVE); PROTEIN URINE 50 mg/dL (NEGATIVE); SP GRAVITY URINE 1.014; TURBIDITY URINE HAZY (CLEAR); UROBILINOGEN URINE NORMAL (NORMAL)
[2018-11-29 06:35] LABS: UR EPITHELIAL CELLS <10 /HPF (<10); URINE BACTERIA NEGATIVE /HPF; URINE CASTS NONE SEEN; URINE CRYSTALS NONE SEEN; URINE SMALL ROUND CELLS NONE SEEN; URINE WBC TNTC /HPF (<10); URINE YEAST NONE SEEN
[2018-11-29 07:07] LABS: BASO# 0.01 X1000 (0.0-0.2); BASO% 0.2 % (0.0-0.8); EOS# 0.05 X1000 (0.0-0.7); EOS% 0.8 % (0.0-10.0); HEMATOCRIT 28.2 % (37.0-47.0); HEMOGLOBIN 8.4 g/dL (12.0-16.0); IMM GRAN# 0.02 X1000 (0.0-0.04); IMM GRAN% 0.3 % (0.0-0.5); LYMPH# 0.87 X1000 (1.2-3.4); LYMPH% 14.4 % (20.5-51.1); MCH 27.3 PG (27-31); MCHC 29.8 g/dL (33-37); MCV 91.6 FL (81-99); MONO# 0.35 X1000 (0.11-0.59); MONO% 5.8 % (1.7-9.3); MPV 11.1 FL (7.4-10.4); NEUT# 4.74 X1000 (1.4-6.5); NEUT% 78.5 % (42.2-75.2); PLT 192 X1000 (130-400); RBC 3.08 XMIL (4.2-5.4); RDW 15.2 % (11.5-14.5); WBC 6.04 X1000 (4.8-10.8)
[2018-11-29 07:36] LABS: AGAP 13; ALB/GLOB RATIO 1.2; ALBUMIN 3.6 g/dL (3.5-5.0); ALKALINE PHOSPHATASE 69 U/L (32-104); BUN 20 mg/dL (8-22); CHLORIDE 104 mmol/L (98-107); COSMO 283; CREATININE 0.9 mg/dL (0.5-0.9); ESTIMATED GFR > 60; GLUCOSE 115 mg/dL (70-104); GOT 17 U/L (10-30); GPT 8 U/L (10-36); POTASSIUM 3.8 mmol/L (3.5-5.1); SODIUM 140 mmol/L (136-145); TCO2 23 mmol/L (25-35); TOTAL BILIRUBIN 0.25 mg/dL (0.20-1.00); TOTAL PROTEIN 6.5 g/dL (6.3-8.3)
[2018-11-29] MEDS ORDERED: CYMBALTA PO SCH (09:00)
[2018-11-29] MEDS ORDERED: VICTOZA SUBQ SCH (09:00)
[2018-11-29] MEDS ORDERED: TRILIPIX PO SCH (09:00)
[2018-11-29] MEDS: NORVASC PO SCH (10:43)
[2018-11-29] MEDS: LOVENOX SUBQ SCH (10:43)
[2018-11-29] MEDS: TOPROL XL PO SCH (10:43)
[2018-11-29] MEDS: HYDROCHLOROTHIAZIDE PO SCH (10:44)
[2018-11-29] MEDS: DIOVAN PO SCH (10:44)
[2018-11-29] MEDS: LYRICA PO SCH ×2 (10:44→21:20)
[2018-11-29] MEDS: ACTOS PO SCH (10:44)
--- NOTE | 2018-11-29 12:40 | ORTHOPAEDICS PROGRESS NOTE ---
DATE: 11/29/2018 SUBJECTIVE DATA: Ms Whitfield is seen today for her right knee pain and right patella fracture with right lateral tibial plateau fracture. She states that she had stepped down the steps with the right knee first and the knee twisted on her and she felt a pop. She reported significant pain in the knee afterwards. OBJECTIVE DATA: The patient is currently in a knee immobilizer with Nabil wrap around the knee. There is good pedal pulses. There is good capillary refill in the toes. X-RAYS: Does show a patella fracture with a right lateral tibial plateau fracture. ASSESSMENT: Right total knee arthroplasty post 4 weeks with displaced patella fracture and right lateral tibial plateau fracture. PLAN: Will plan a revision of the right patella tomorrow. We will check the lateral fracture and see if it needs any type of work while we are in there. The patient agrees to the surgery and will keep her NPO tonight. We will keep her in the knee immobilizer until time for surgery. Dictated by PERICO Hall for Fermin Davila MD cc: PERICO Hall MD [facility]
--- NOTE | 2018-11-29 16:10 | PROGRESS NOTE ---
DATE: 11/29/2018 SUBJECTIVE: The patient seems to be resting comfortably in bed, hopefully. She will have her right patellar fracture repaired in the morning tomorrow. Vital signs are stable as well as laboratory. Her hemoglobin is 8.4, but will monitor for now, BUN and creatinine within normal limits. We do have a urinalysis that showed a large amount of WBC and also positive nitrates. As per the patient she has been having some kind of burning sensation during urination at home so she has been placed already on antibiotics which will cover also this urinary tract infection. Urine culture is negative. OBJECTIVE: Vital Signs: Temperature 97.7 degrees, pulse 97, respiratory rate 17, blood pressure 144/42 oxygen saturation 99 on room air. HEENT: Head normocephalic. No trauma. PERRLA. Neck: Supple. No JVD. No masses. Central trachea. Chest: Clear to auscultation. No wheezing. No rales. Abdomen: Soft, nontender, nondistended. No hepatosplenomegaly. Extremities: Right knee pain and is wrapped with a dressing. I do not see any blood in that area. She is able to wiggle her toes. No neurovascular lesion. Neurological: She is alert and oriented x3. No focal deficits. LABORATORY: WBC 6, hemoglobin 8.4, hematocrit 28.2, platelets 192,000. Sodium 140, potassium 3.8, chloride 104, bicarbonate 23, BUN 20, creatinine 0.9, glucose 115, calcium 10. AST 17, ALT 8, alkaline phosphatase 69. ASSESSMENT AND PLAN: 1. Right patellar fracture, orthopedic surgery evaluated this patient. She is status post right knee arthroplasty which has been done recently, I will continue with her pain medications. Hopefully, tomorrow she will have the patellar repair done. We will put this patient NPO after midnight and we will hold the morning Lovenox. 2. Recent right knee arthroplasty as above. 3. Likely urinary tract infection, this patient has been having symptoms and we have urinalysis that showed nitrates and white blood cells, no bacteria, though. Either way she has been placed on antibiotics and we will continue to monitor. Culture has been negative. 4. Hypertension. Continue home medication home medications, hydralazine as needed. 5. Gastroesophageal reflux disease. Continue proton pump inhibitors. 6. Dyslipidemia continue home medication. 7. Peripheral neuropathy, stable. 8. Vitamin D deficiency. Continue to replace. cc: Raymond Juárez MD
[2018-11-29] MEDS: METAMUCIL PO SCH (17:47)
[2018-11-29] MEDS: CRESTOR PO SCH (21:19)
[2018-11-29] MEDS: MIRAPEX PO SCH (21:20)
[2018-11-29] MEDS: TRILIPIX PO SCH (21:20)
[2018-11-29] MEDS: VICTOZA SUBQ SCH (21:23)
[2018-11-30] MEDS: OXY IR PO PRN ×2 (00:29→23:32)
[2018-11-30] MEDS: KEFZOL 1 GM/D5W 1 GM/50 ML IVPB IV SCH ×3 (01:27→17:59)
[2018-11-30] MEDS ORDERED: HYDROCORTISONE 1% CREAM TOP PRN (02:00)
[2018-11-30] MEDS ORDERED: BENADRYL IV ONE (02:09)
[2018-11-30] MEDS: METAMUCIL PO SCH ×3 (03:00→20:11)
[2018-11-30] MEDS: DEMEROL IV PRN ×2 (04:16→11:34)
[2018-11-30] MEDS ORDERED: DEMEROL IV ONE (05:54)
[2018-11-30 06:51] LABS: HEMATOCRIT 27.3 % (37.0-47.0); HEMOGLOBIN 8.5 g/dL (12.0-16.0)
[2018-11-30 07:27] LABS: CALCIUM 9.8 mg/dL (8.8-10.2); CREATININE 1.2 mg/dL (0.5-0.9); POTASSIUM 3.9 mmol/L (3.5-5.1)
[2018-11-30] MEDS: PREVACID SOLUTAB PO SCH (08:31)
[2018-11-30] MEDS ORDERED: MILK OF MAGNESIA PO PRN ×2 (09:19→15:57)
--- NOTE | 2018-11-30 09:37 | PROGRESS NOTE ---
DATE: 11/30/2018 SUBJECTIVE: Ms. Whitfield is feeling better. She had shattered her patella. She is in a brace. She is hoping to go to rehab. Eating okay. She would like something for her bowels. I think Metamucil is what she was on. OBJECTIVE: Temperature 97.8 degrees, pulse 65, respirations 18, blood pressure 142/56. Pupils are equal and round. Lungs are clear in all lung alcaraz. Cardiovascular Examination: Regular rhythm and rate without murmur or S3. Abdomen: Soft. Skin: Warm and dry. ASSESSMENT AND PLAN: 1. Right patella fracture. Orthopedic surgery evaluated this patient. Status post right knee arthroplasty done recently. Continue her pain medication. She is in a brace and plan is patellar repair today. 2. Recent right knee arthroplasty. 3. Likely urinary tract infection, so treating with antibiotics. Her urine showed nitrites and white blood cells. 4. Hypertension. 5. Gastroesophageal reflux. 6. Peripheral neuropathy. Continue current medications. 7. Social service is looking for rehab opportunities. REVIEW OF ORDERS: She is on Cymbalta 60 mg at bedtime, fenofibric acid 135 mg p.o. at bedtime, Victoza 1.8 mg subcutaneous at bedtime, Mirapex 1 mg p.o. at bedtime, Crestor 10 mg at bedtime, OxyIR 5 mg p.o. q.3 hours p.r.n., Norvasc 5 mg daily, Zyrtec 10 mg a day, hydrochlorothiazide 12.5 mg p.o. daily. She is getting Demerol 25 mg q.4 hours p.r.n. pain, metoprolol succinate 100 mg p.o. daily, Actos 45 mg a day, Lyrica 150 mg p.o. b.i.d., and she is on her Metamucil, Diovan 80 mg a day, Lyrica 150 mg b.i.d. I will put her on milk of magnesia as needed. cc: Tyler Hidalgo MD
[2018-11-30] MEDS: TOPROL XL PO SCH (10:23)
[2018-11-30] MEDS: NORVASC PO SCH (10:23)
[2018-11-30] MEDS: LOVENOX SUBQ SCH (10:23)
[2018-11-30] MEDS: LYRICA PO SCH ×2 (10:24→20:08)
[2018-11-30] MEDS ORDERED: XYLOCAINE-MPF 2% ONE (12:37)
[2018-11-30] MEDS ORDERED: FENTANYL ONE ×2 (12:37→14:37)
[2018-11-30] MEDS ORDERED: DIPRIVAN 1% ONE (12:37)
[2018-11-30] MEDS ORDERED: KEFZOL 2 GM/D5W 2 GM/50 ML IVPB ONE (13:58)
[2018-11-30] MEDS ORDERED: OFIRMEV 1000 MG/ISOTONIC SOLN 1,000 MG/100 ML BOTTLE ONE (14:06)
[2018-11-30] MEDS ORDERED: ZOFRAN ONE (15:15)
[2018-11-30] MEDS ORDERED: DECADRON ONE (15:15)
[2018-11-30] MEDS: DILAUDID ONE ×8 (15:30→16:07)
[2018-11-30] MEDS ORDERED: NS 1,000 ML ONE (15:49)
[2018-11-30] MEDS ORDERED: OXY IR PO PRN (15:57)
[2018-11-30] MEDS ORDERED: ZOFRAN IV PRN (15:57)
[2018-11-30] MEDS ORDERED: MORPHINE IV PRN (15:57)
[2018-11-30] MEDS ORDERED: HALDOL IV PRN (16:00)
[2018-11-30] MEDS ORDERED: MARCAINE 0.25% PF ONE (16:12)
[2018-11-30] MEDS: ACTOS PO SCH (17:26)
[2018-11-30] MEDS: DIOVAN PO SCH (17:26)
[2018-11-30] MEDS: HYDROCHLOROTHIAZIDE PO SCH (17:27)
[2018-11-30] MEDS: NS 1,000 ML IV SCH (18:00)
--- NOTE | 2018-11-30 18:08 | OPERATIVE NOTE ---
PROCEDURE DATE: 11/30/2018 PREOP DIAGNOSIS: Periprosthetic patella fracture with a nondisplaced lateral tibial plateau fracture right total knee. POSTOP DIAGNOSIS: Periprosthetic patella fracture with a nondisplaced lateral tibial plateau fracture right total knee. PROCEDURE: Open reduction internal fixation of the right periprosthetic patella fracture. SURGEON: Rashawn Davila MD. GENETIC PHYSICIAN: PERICO Hall. Mr. Dow was necessary for proper retraction and manipulation of the leg during the case. ANESTHESIA: General. COMPLICATION: None. PROCEDURE IN DETAIL: This 73-year-old female roughly 1 month status post a total knee replacement sustained a fall on stairs at [employer] injuring her patella and tibial plateau. She had a displaced patella fracture with disruption of the extensor mechanism. Risks, benefits about repair were discussed with the patient preoperatively and she is willing to proceed. She was taken to the operating room and satisfactory anesthesia obtained. The right leg was prepped and draped in usual sterile fashion. A time-out was taken to confirm operative site, procedure, and patient. The previous midline incision was incised and a avulsion of the inferior pole of patella off the patella was noted with disruption of the extensor mechanism as well as the medial and lateral retinaculum. The joint was irrigated with a pulsatile lavage to remove any clot. The inferior pole of patella was debrided of any retained clot as well as the extensor mechanism. Comminution of the patella was noted not only inferiorly but medially and laterally as would result from a direct blow to the front of the knee. This did not appear due the comminution to be a simple stress type fracture injury pattern. The patella button was noted to be fully intact and not unstable. The femoral and tibial components of the knee replacement were inspected and noted to be stable with good alignment. The wound was then copiously irrigated again and lavaged with Vashe to prevent any infection. A #5 FiberWire was then placed in a Deleon-type fashion along the inferior bony fragment which was too small for fixation and an additional #5 FiberWire placed parallel to this with a modified Deleon-type stitch. One central drill hole was placed through the patella longitudinally with care taken to avoid any disruption of the cement mantle the patellar button. A delivery stitch was used to passed the central limbs of both #5 FiberWires up through the superior pole of patella. The medial and lateral aspects of the patella were comminuted and were reapproximated by passing #5 wire with a Chapa needle up through the quad tendon in parallel fashion. With the knee extended, the fracture and patellar tendon was reduced and the FiberWire tied over the superior pole of patella reestablishing extensor mechanism. A #1 Vicryl was then used to repair the medial and lateral retinaculum. The C-arm was used to verify accurate fracture reduction as well as reduction of the patella. The subcutaneous was closed with 2-0 Vicryl and the skin with skin kervin. Sterile dressings were applied. The knee placed in a knee immobilizer. The tourniquet was released with good return of capillary blood flow. She was transferred to the recovery room in stable condition. No intraoperative complications were noted. Instrument count and sponge count was correct at the time of closure. cc: Fermin Davila MD
[2018-11-30] MEDS: TRILIPIX PO SCH (20:00)
[2018-11-30] MEDS: COLACE PO SCH (20:07)
[2018-11-30] MEDS: CYMBALTA PO SCH (20:08)
[2018-11-30] MEDS: CRESTOR PO SCH (20:08)
[2018-11-30] MEDS: TYLENOL PO SCH (20:09)
[2018-11-30] MEDS: PERIDEX MT SCH (20:09)
[2018-11-30] MEDS: MIRAPEX PO SCH (20:09)
[2018-11-30] MEDS: VICTOZA SUBQ SCH (21:00)
[2018-12-01] MEDS: KEFZOL 1 GM/D5W 1 GM/50 ML IVPB IV SCH (01:30)
[2018-12-01] MEDS: DIOVAN PO SCH ×2 (01:30→09:43)
[2018-12-01] MEDS: OXY IR PO PRN ×6 (02:05→22:29)
[2018-12-01] MEDS: NS 1,000 ML IV SCH ×3 (04:50→17:45)
[2018-12-01 06:09] LABS: HEMOGLOBIN 7.9 g/dL (12.0-16.0)
[2018-12-01] MEDS: TYLENOL PO SCH ×4 (06:34→19:55)
[2018-12-01] MEDS: LOVENOX SUBQ SCH (06:35)
[2018-12-01 06:36] LABS: AGAP 11; BUN 15 mg/dL (8-22); CALCIUM 9.3 mg/dL (8.8-10.2); CHLORIDE 104 mmol/L (98-107); COSMO 283; CREATININE 0.7 mg/dL (0.5-0.9); ESTIMATED GFR > 60; GLUCOSE 119 mg/dL (70-104); POTASSIUM 4.5 mmol/L (3.5-5.1); SODIUM 141 mmol/L (136-145); TCO2 26 mmol/L (25-35)
[2018-12-01] MEDS: PREVACID SOLUTAB PO SCH (06:39)
--- NOTE | 2018-12-01 09:10 | Diag Imaging Result Doc PS360 ---
CHEST-PORTABLE - 12/01/2018 INDICATION: rehab placement COMPARISON: 11/02/2018 FINDINGS: There is mild cardiomegaly. Pulmonary vascularity is top normal. No infiltrates or edema. No large pleural effusion. IMPRESSION: Mild cardiomegaly. Electronically signed by Elfego Reeves 12/01/2018 9:07 AM
[2018-12-01] MEDS: NORVASC PO SCH (09:42)
[2018-12-01] MEDS: TOPROL XL PO SCH (09:42)
[2018-12-01] MEDS: ACTOS PO SCH (09:43)
[2018-12-01] MEDS: LYRICA PO SCH ×2 (09:43→19:54)
[2018-12-01] MEDS: FERROUS SULFATE PO SCH (09:43)
[2018-12-01] MEDS: METAMUCIL PO SCH ×2 (09:43→19:55)
[2018-12-01] MEDS: HYDROCHLOROTHIAZIDE PO SCH (09:44)
[2018-12-01] MEDS: PERIDEX MT SCH ×2 (09:44→19:53)
--- NOTE | 2018-12-01 10:20 | PROGRESS NOTE ---
DATE: 12/01/2018 SUBJECTIVE: Ms. Whitfield is awake, alert, no complaints. She is waiting on going to rehab. OBJECTIVE: Vital signs: Temperature 98.1 degrees, pulse 70, respirations 18, blood pressure 140/66. HEENT: Pupils are equal and round. Lungs: Clear in all lung alcaraz. Cardiovascular: Regular rate without murmur or S3. Abdomen: Soft. IMAGING: Chest x-ray. Mild cardiomegaly. Pulmonary vascularity is top of normal. No infiltrates or edema. ASSESSMENT: 1. Dr. Davila had performed open reduction and internal fixation of the right periprosthetic patella fracture. 2. Recent right knee arthroplasty. 3. Likely urinary tract infection, so treating with antibiotic. Should be well treated. 4. Hypertension. 5. Gastroesophageal reflux disease. 6. Peripheral neuropathy. REVIEW OF ORDERS: I do not see any change. LABORATORY DATA: Sodium 141, potassium 4.5, chloride 104, BUN 15, creatinine 0.7 blood sugar 123, 199, 119, and 98. Hematocrit 26, hemoglobin 7.9. cc: Tyler Hidalgo MD
[2018-12-01] MEDS: DEMEROL IV PRN (12:01)
[2018-12-01] MEDS ORDERED: INSULIN PEN NEEDLES ONE (13:58)
[2018-12-01] MEDS: CYMBALTA PO SCH (19:53)
[2018-12-01] MEDS: MIRAPEX PO SCH (19:54)
[2018-12-01] MEDS: CRESTOR PO SCH (19:54)
[2018-12-01] MEDS: COLACE PO SCH (19:54)
[2018-12-01] MEDS: TRILIPIX PO SCH (19:55)
[2018-12-01] MEDS: VICTOZA SUBQ SCH (22:00)
[2018-12-02] MEDS: OXY IR PO PRN ×4 (01:30→12:58)
[2018-12-02] MEDS: COLACE PO SCH (01:34)
[2018-12-02] MEDS: PERIDEX MT SCH ×2 (01:34→09:00)
[2018-12-02] MEDS: LYRICA PO SCH ×2 (01:34→08:55)
[2018-12-02] MEDS: MIRAPEX PO SCH (01:34)
[2018-12-02] MEDS: TYLENOL PO SCH ×3 (01:34→13:40)
[2018-12-02] MEDS: CRESTOR PO SCH (01:35)
[2018-12-02] MEDS: TRILIPIX PO SCH (01:35)
[2018-12-02] MEDS: CYMBALTA PO SCH (01:35)
[2018-12-02] MEDS: METAMUCIL PO SCH ×2 (01:35→08:55)
[2018-12-02] MEDS: LOVENOX SUBQ SCH ×2 (04:18→08:23)
[2018-12-02] MEDS: PREVACID SOLUTAB PO SCH ×2 (04:18→08:23)
[2018-12-02 07:22] LABS: HEMATOCRIT 23.8 % (37.0-47.0); HEMOGLOBIN 7.2 g/dL (12.0-16.0)
[2018-12-02] MEDS: NORVASC PO SCH (08:55)
[2018-12-02] MEDS: ACTOS PO SCH (08:56)
[2018-12-02] MEDS: DIOVAN PO SCH (08:57)
[2018-12-02] MEDS: TOPROL XL PO SCH (08:58)
[2018-12-02] MEDS: HYDROCHLOROTHIAZIDE PO SCH (08:59)
[2018-12-02] MEDS: FERROUS SULFATE PO SCH (09:00)
--- NOTE | 2018-12-02 12:51 | DISCHARGE SUMMARY ---
ADMISSION DATE: 11/28/2018 DISCHARGE DATE: 12/02/2018 HISTORY OF PRESENT ILLNESS: She is a patient of Dr. Yosvany Estevez. A 73-year-old, presented on 11/28/2018 with a past medical history of osteoarthritis, hypertension, diabetes mellitus type 2, gastroesophageal reflux disease, dyslipidemia, peripheral neuropathy, history of goiter, status post partial lobectomy, recently had surgery done, and a right total knee arthroplasty. She presented to the emergency department on 11/28/2018 with right knee pain. Apparently, the patient was stepping down from a step at [employer] when she felt a snap and immediately felt a lot of pain in that kneecap, landed on the concrete. The patient just recently had a total knee done on 11/02/2018. Noticed a little bleeding through the surgical wound. X-ray in the emergency department showed a patella fracture and so she was admitted to the hospital. PAST MEDICAL HISTORY: 1. Osteoarthritis. 2. Hypertension. 3. Diabetes mellitus type 2. 4. Gastroesophageal reflux disease. 5. Dyslipidemia. 6. Peripheral neuropathy. 7. History of goiter. PAST SURGICAL HISTORY: 1. Thyroid lobectomy. 2. Status post hysterectomy. 3. Open reduction and internal fixation of the right arm. 4. Left knee arthroplasty. 5. Right knee arthroplasty on 11/02/2018. 6. Breast biopsy. ADMISSION DIAGNOSES: 1. Right patellar fracture. Orthopedic surgery evaluated. 2. Recent right knee arthroplasty. 3. Diabetes mellitus type 2. We will pattern sugars and follow. 4. Hypertension. Follow blood pressures carefully. 5. History of esophageal reflux disease so put on proton pump inhibitors. 6. Dyslipidemia. Aware. 7. Peripheral neuropathy. 8. Vitamin D deficiency. Aware. HOSPITAL COURSE: Continued her current medications. Orthopedic evaluated and went to surgery on 11/30/2018. Open reduction and internal fixation of right periprosthetic patella fracture per Dr. Rashawn Davila. Tolerated the procedure well. Chest x-ray on 12/01/2018 looked good. Eating well and pain control was good. It was able that she was ready to go to rehab on 12/02/2018. DISCHARGE MEDICATIONS: She will be on Norvasc 5 mg a day, Zyrtec 10 mg a day, Colace 200 mg at bedtime, Cymbalta 60 mg at bedtime, fenofibric acid 135 mg p.o. at bedtime, ferrous sulfate 325 mg q.a.m. with breakfast, hydrochlorothiazide 12.5 mg daily, Prevacid 15 mg p.o. daily, Victoza 1.8 mg subcutaneous at bedtime, milk of magnesia 30 mL p.o. daily, Demerol we stopped, Toprol-XL 100 mg p.o. daily, oxycodone 5 to 10 mg p.o. q.3 hours p.r.n. pain (I will give her 40 of those), Actos 45 mg a day, Mirapex 1 mg at bedtime, Lyrica 150 mg p.o. b.i.d., Metamucil 1 b.i.d., Crestor 10 mg at bedtime, and Diovan 80 mg daily. cc: Tyler Hidalgo MD
[2018-12-02] MEDS ORDERED: DULCOLAX PR ONE (13:01)
[2018-12-02 15:30] VITALS: BP 177/70
--- NOTE | 2018-12-02 17:11 | ORTHOPAEDICS PROGRESS NOTE ---
DATE: 12/02/2018 Ms. Whitfield is seen status post extensor tendon repair of her knee. Presently, her wound looks clean and dry. We will change the bandage today. She is mobilizing slowly. She can be mobilized with no knee bending and touchdown weightbearing on the right lower extremity. We will be available as needed at this point, and I will see her back in the office in roughly 10 days for staple removal. cc: Fermin Davila MD
== END 2018-12-02 16:39 | DRG 516 ==
LOC: SUPCPDRO → ED 12:05 → 4N 17:37 → SUATTDRO 17:37
PROVIDERS: ATTEND Emergency Medicine